=== PATIENT | male | born 2000 | race Caucasian/White ===

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

== ENCOUNTER → 2021-12-28 | Outpatient (CLI) | payer BC | LOC: M RAD 08:56 | PROVIDERS: ATTEND Orthopaedic Surgery | DX: M25.562 Pain in left knee (principal) ==

== ENCOUNTER 2022-06-10 14:17 | Observation (INO) | payer BC ==
[~2022-06-10] VITALS: Ht 182.9 cm; Wt 80.4 kg
[2022-06-10] MEDS ORDERED: IBUP200C25 PO (14:25)
[2022-06-10] MEDS ORDERED: ALLE12TA31 PO ×2 (14:25→21:03)
[2022-06-10] MEDS ORDERED: AMPICILLIN SOD/SULBACTAM SOD 3 GM in D5W MINI-BAG PLUS 100 ML IV ONE (17:20)
[2022-06-10 17:49] LABS: HEMATOCRIT 45.2 % (42.0-52.0); HEMOGLOBIN 15.5 g/dl (13.5-17.5); MEAN CORPUSCULAR HEMOGLOBIN 28.7 pg (27.0-33.0); MEAN CORPUSCULAR HGB CONC 34.3 g/dl (32.0-36.5); MEAN CORPUSCULAR VOLUME 83.5 fl (80.0-96.0); PLATELET COUNT, AUTOMATED 159 10^3/uL (150-450); RED BLOOD COUNT 5.41 10^6/uL (4.30-6.10); WHITE BLOOD COUNT 13.4 10^3/uL (4.0-10.0)
[2022-06-10 18:08] LABS: INR 1.15; PARTIAL THROMBOPLASTIN TIME 25.2 SECONDS (24.8-34.2); PROTHROMBIN TIME 14.9 SECONDS (12.5-14.5)
[2022-06-10 18:09] LABS: ALKALINE PHOSPHATASE 135 U/L (46-116); ALT/SGPT 63 U/L (7.0-40); AST/SGOT 50 U/L (<34); BILIRUBIN,DIRECT 0.3 MG/DL (<0.4); BILIRUBIN,TOTAL 0.6 MG/DL (0.3-1.2); BLOOD UREA NITROGEN 17 MG/DL (9-23); CALCIUM LEVEL 9.5 MG/DL (8.5-10.1); CARBON DIOXIDE LEVEL 28 MMOL/L (20-31); CHLORIDE LEVEL 95 MMOL/L (98-107); CREATININE FOR GFR 0.98 MG/DL (0.70-1.30); GLOMERULAR FILTRATION RATE > 60.0 (>60); GLUCOSE, FASTING 102 MG/DL (60-100); POTASSIUM SERUM 3.9 MMOL/L (3.5-5.1); SODIUM LEVEL 135 MMOL/L (136-145); TOTAL PROTEIN 7.7 G/DL (5.7-8.2)
[2022-06-10 18:18] LABS: RSV AMPLIFICATION NEGATIVE (NEGATIVE)
[2022-06-10] MEDS ORDERED: NS 1,000 ML IV ONE (18:20)
[2022-06-10 18:26] LABS: MONO SCRN POSITIVE (NEGATIVE)
[2022-06-10 18:27] LABS: ATYPICAL LYMPH 38 % (0-5); BASOPHILS 1 % (0-1); LYMPHOCYTES 9 % (16-44); MONOCYTES 13 % (0-5); NEUTROPHILS 17 % (28-66); PLATELET ESTIMATE NORMAL (NORMAL)
[2022-06-10] MEDS ORDERED: ISOVUE-370 76% 100ML VIAL As Ordered ONE (19:06)
[2022-06-10] MEDS ORDERED: FLON1SPR (21:03)
[2022-06-10] MEDS ORDERED: IBUP-1720 PO (21:03)
[2022-06-10] MEDS ORDERED: HOME MED LIST COMPLETE! XX SCH (21:05)
[2022-06-10 23:45] VITALS: BP 154/80
[2022-06-11] MEDS: CLINDAMYCIN 600 MG in IV 1 EA IV SCH ×3 (00:50→16:33)
[2022-06-11 04:00] VITALS: BP 138/78
[2022-06-11] MEDS ORDERED: NS 1,000 ML IV ONE (04:50)
[2022-06-11 06:29] LABS: ALBUMIN 3.3 G/DL (3.2-5.2); ALKALINE PHOSPHATASE 116 U/L (46-116); ALT/SGPT 63 U/L (7.0-40); AST/SGOT 51 U/L (<34); BILIRUBIN,TOTAL 0.4 MG/DL (0.3-1.2); BLOOD UREA NITROGEN 13 MG/DL (9-23); CARBON DIOXIDE LEVEL 27 MMOL/L (20-31); CHLORIDE LEVEL 97 MMOL/L (98-107); CREATININE FOR GFR 0.84 MG/DL (0.70-1.30); GLOMERULAR FILTRATION RATE > 60.0 (>60); GLUCOSE, FASTING 138 MG/DL (60-100); POTASSIUM SERUM 4.2 MMOL/L (3.5-5.1); SODIUM LEVEL 133 MMOL/L (136-145); TOTAL PROTEIN 6.8 G/DL (5.7-8.2)
[2022-06-11 08:15] VITALS: BP 131/66
[2022-06-11 11:20] LABS: HEMATOCRIT 39.2 % (42.0-52.0); MEAN CORPUSCULAR HEMOGLOBIN 28.3 pg (27.0-33.0); MEAN CORPUSCULAR HGB CONC 33.7 g/dl (32.0-36.5); MEAN CORPUSCULAR VOLUME 83.9 fl (80.0-96.0); PLATELET COUNT, AUTOMATED 154 10^3/uL (150-450); RED BLOOD COUNT 4.67 10^6/uL (4.30-6.10); WHITE BLOOD COUNT 14.2 10^3/uL (4.0-10.0)
[2022-06-11 11:33] LABS: HEMOGLOBIN 13.2 g/dl (13.5-17.5)
[2022-06-11 11:40] LABS: ERYTHROCYTE SEDIMENTATION RATE 15 mm/hr (0-15)
[2022-06-11 11:45] LABS: BLOOD UREA NITROGEN 12 MG/DL (9-23); CALCIUM LEVEL 8.7 MG/DL (8.5-10.1); CARBON DIOXIDE LEVEL 28 MMOL/L (20-31); CHLORIDE LEVEL 99 MMOL/L (98-107); CREATININE FOR GFR 0.91 MG/DL (0.70-1.30); GLOMERULAR FILTRATION RATE > 60.0 (>60); GLUCOSE, FASTING 126 MG/DL (60-100); POTASSIUM SERUM 4.1 MMOL/L (3.5-5.1); SODIUM LEVEL 136 MMOL/L (136-145)
[2022-06-11] MEDS: CETIRIZINE (ZyrTEC) 10 MG TAB PO SCH (12:05)
[2022-06-11] MEDS: guaiFENesin ER 600 MG TAB PO SCH ×2 (12:06→22:41)
[2022-06-11] MEDS: FLUTICASONE PROP 0.05% NASAL SPRAY 16 GM (FLONASE) NARES SCH (12:06)
[2022-06-11 12:09] LABS: ATYPICAL LYMPH 30 % (0-5); LYMPHOCYTES 23 % (16-44); MONOCYTES 17 % (0-5); NEUTROPHILS 28 % (28-66); PLATELET ESTIMATE NORMAL (NORMAL)
[2022-06-11] MEDS: D5W/0.45% SODIUM CHLORIDE 1,000 ML IV SCH (14:49)
[2022-06-11 16:00] VITALS: BP 133/73
[2022-06-12] VITALS: BP 113/67
[2022-06-12] MEDS: CLINDAMYCIN 600 MG in IV 1 EA IV SCH ×4 (01:03→23:47)
[2022-06-12] MEDS: D5W/0.45% SODIUM CHLORIDE 1,000 ML IV SCH ×3 (01:03→21:00)
[2022-06-12] MEDS: guaiFENesin ER 600 MG TAB PO SCH ×2 (08:27→21:01)
[2022-06-12] MEDS: FLUTICASONE PROP 0.05% NASAL SPRAY 16 GM (FLONASE) NARES SCH (08:27)
[2022-06-12] MEDS: CETIRIZINE (ZyrTEC) 10 MG TAB PO SCH (08:27)
[2022-06-12 09:08] LABS: MEAN CORPUSCULAR HEMOGLOBIN 28.1 pg (27.0-33.0); MEAN CORPUSCULAR HGB CONC 32.6 g/dl (32.0-36.5); MEAN CORPUSCULAR VOLUME 86.2 fl (80.0-96.0); PLATELET COUNT, AUTOMATED 194 10^3/uL (150-450); RED BLOOD COUNT 4.99 10^6/uL (4.30-6.10); WHITE BLOOD COUNT 19.9 10^3/uL (4.0-10.0)
[2022-06-12 09:32] LABS: BLOOD UREA NITROGEN 14 MG/DL (9-23); CALCIUM LEVEL 9.2 MG/DL (8.5-10.1); CARBON DIOXIDE LEVEL 29 MMOL/L (20-31); CHLORIDE LEVEL 102 MMOL/L (98-107); GLOMERULAR FILTRATION RATE > 60.0 (>60); GLUCOSE, FASTING 154 MG/DL (60-100); POTASSIUM SERUM 4.7 MMOL/L (3.5-5.1); SODIUM LEVEL 140 MMOL/L (136-145)
[2022-06-12 10:47] LABS: ATYPICAL LYMPH 35 % (0-5); LYMPHOCYTES 16 % (16-44); MONOCYTES 13 % (0-5); NEUTROPHILS 36 % (28-66); PLATELET ESTIMATE NORMAL (NORMAL)
[2022-06-12 10:49] LABS: SMUDGE CELLS 1+
[2022-06-12 11:47] LABS: ERYTHROCYTE SEDIMENTATION RATE 16 mm/hr (0-15)
[2022-06-12 12:00] VITALS: BP 133/78
[2022-06-12] MEDS: KETOROLAC 30 MG/ML 1ML VIAL IV SCH ×3 (12:37→23:48)
[2022-06-12 20:00] VITALS: BP 137/64
[2022-06-13] MEDS: D5W/0.45% SODIUM CHLORIDE 1,000 ML IV SCH ×2 (05:00→06:54)
[2022-06-13] MEDS: KETOROLAC 30 MG/ML 1ML VIAL IV SCH (05:13)
[2022-06-13 05:19] VITALS: BP 140/87
[2022-06-13] MEDS ORDERED: MUCI600T31 PO (07:23)
[2022-06-13] MEDS ORDERED: BACI1CAP PO (07:23)
[2022-06-13] MEDS ORDERED: PRIL20TA2 PO (07:23)
[2022-06-13] MEDS ORDERED: CLEO300C2 PO (07:23)
[2022-06-13] MEDS ORDERED: CETI10TA PO (07:23)
[2022-06-13] MEDS ORDERED: FLUTISP NARES (07:23)
[2022-06-13] MEDS ORDERED: DEXA4TA PO (07:23)
[2022-06-13 08:00] VITALS: BP 138/87
[2022-06-13] MEDS: CLINDAMYCIN 600 MG in IV 1 EA IV SCH (08:04)
[2022-06-13] MEDS: CETIRIZINE (ZyrTEC) 10 MG TAB PO SCH (09:43)
[2022-06-13] MEDS: guaiFENesin ER 600 MG TAB PO SCH (09:44)
[2022-06-13] MEDS: FLUTICASONE PROP 0.05% NASAL SPRAY 16 GM (FLONASE) NARES SCH (09:44)
== END 2022-06-13 10:33 | disposition home or self-care (01) ==
LOC: M ED 14:17 → M ED INP 14:18 → M PED 23:28
PROVIDERS: ADMIT Internal Medicine; ATTEND Internal Medicine
DX: B27.90 Infectious mononucleosis, unspecified without complication (principal); J03.80 Acute tonsillitis due to other specified organisms; R74.01 Elevation of levels of liver transaminase levels; R16.1 Splenomegaly, not elsewhere classified; E87.1 Hypo-osmolality and hyponatremia; B95.4 Other streptococcus as the cause of diseases classified elsewhere; R13.10 Dysphagia, unspecified; D72.829 Elevated white blood cell count, unspecified; B95.7 Other staphylococcus as the cause of diseases classified elsewhere; J30.2 Other seasonal allergic rhinitis; Z79.52 Long term (current) use of systemic steroids; Z79.899 Other long term (current) drug therapy
CPT/HCPCS: 36415; 70491; 80048; 80053; 82248; 83605; 85025; 85610; 85652; 85730; 86140; 86308; 87040; 87077; 87186; 87631; 87880; 96361; 96365; 96366; 96367; 96375; 96376; 99284; J0295; J1100; J1885

== ENCOUNTER → 2025-02-21 | Outpatient (REF) | payer BC ==
[~2025-02-21] MED LIST: ALLE12TA31 PO; BACI1CAP PO; CETI10TA PO; CLEO300C2 PO; DEXA4TA PO; FLON1SPR; FLUTISP NARES; IBUP-1720 PO; IBUP200C25 PO; MUCI600T31 PO; PRIL20TA2 PO
== END ==
LOC: M SFHCPLAZ 10:40
PROVIDERS: ATTEND Family Medicine
DX: Z53.9 Procedure and treatment not carried out, unspecified reason (principal)